=== PATIENT | male | born 1985 | race Caucasian/White ===

== ENCOUNTER 2024-09-09 10:35 | Emergency (ER) | payer SELFPAY ==
[2024-09-09 10:53] VITALS: BP 118/76
[2024-09-09 11:02] VITALS: BMI 24.8
--- NOTE | 2024-09-09 11:28 | ED.GENMED ---
History of Present Illness
General
Chief Complaint: Fall
Source: patient
Time Seen by Provider: 09/09/24 10:59
History of Present Illness
History of Present Illness:
39 year old male presenting to the ER after he accidentally tripped over his own feet while bringing garbage cans back into his house causing him to fall on the right side of his face, sustaining laceration lateral to the right eyebrow and multiple
abrasions to bilateral upper and lower extremities. No reported loss consciousness, headache, visual changes or any other concerns. Unknown last tetanus. No other injuries were sustained.
Past History
Past History
ED Past Medical History: None
ED Past Surgical History: Orthopedic
Social History
Tobacco: Non-smoker
Alcohol: Occasional
Drug: None
Personal:
Living: with family
Employment: Employed
Review of Systems
Review of Systems
All Other Systems: ROS reviewed and negative except as documented in HPI and ROS
Phy Exam
Physical Exam
Physical Exam:
GENERAL: Alert , in no apparent distress
EYE: conjunctiva clear
Head: 1 cm V-shaped laceration just lateral to the right eyebrow, superficial, no active bleeding
NECK: Supple,
ENT: mmm.
LUNGS: no acute respiratory distress
NEUROLOGICAL: Alert and oriented
SKIN: Warm and dry, superficial abrasions scattered over the bilateral upper and lower extremities
MUSCULOSKELETAL: well perfused.
PSYCH: Normal and appropriate interaction.
Scores
Heart Failure Risk
Heart Failure Risk Score: Not Applicable
Heart Score for Chest Pain Patients
STEMI patient?: Not applicable
Withdrawal Assessment of Alcohol
Withdrawal Assessment Completed?: Not applicable
Course
Orders/Labs/Results
Orders:
Orders
09/09/24 11:06
Tetanus/Diphth/Acelpertussis [Adacel] 0.5 ml IM .ONCE ONE
Vital Signs
Initial and Last Documented VS:
Initial Vital Signs
Temp Pulse Resp BP Pulse Ox
98.0 F 68 16 118/76 98
09/09/24 10:53 09/09/24 10:53 09/09/24 10:53 09/09/24 10:53 09/09/24 10:53
Last Documented Vital Signs
Temp Pulse Resp BP Pulse Ox
97.6 F 54 16 109/71 99
09/09/24 11:45 09/09/24 11:45 09/09/24 11:45 09/09/24 11:45 09/09/24 11:45
Procedures
Laceration Closure
Right Lateral Eye brow:
Status of Wound: clean
Size of Wound in cm: 1
Description of Wound Edges: sharp
Preparation: cleaned with saline
Anesthesia: 1% Lidocaine
Revision/Debridement: routine- no revision
Type of Closure: single layer closure
Skin Closure Material: 6-0 nylon
Number of sutures: 5
MDM/Problems Addressed
Differential Diagnosis Includes:
Superficial laceration/abrasion, contusions, I do not have concern for intracranial bleeding
MDM/Problems Addressed:
39-year-old male presenting to the ER for evaluation following an accidental fall resulting in laceration to the right lateral eyebrow and superficial abrasions to the bilateral upper and lower extremities. Will update patient's tetanus vaccine.
Laceration repaired as above without any difficulty. Patient did have a vagal event while suturing. He was laying recumbent at the time with the vagal event occurring and lasting for about 20 seconds. He was provided with juice and remained
laying recumbent for the remainder of laceration repair. Suture removal in 5 to 7 days. Motrin/Tylenol as needed for pain. Otherwise stable for discharge home
*Pulse Oximetry
Patient hypoxic: no
*Critical Care Note
Total Time (30-74mins, 75-104mins- exclusive of procedures): Not Applicable
Data Reviewed
Further Testing Considered But Not Given:
CT head but given mechanism and lack of symptoms decision was made to forego imaging.
ED Attending Note
-
Portions of this chart may have been created with voice recognition software.� Occasional wrong word or��sound alike� substitutions may have occurred due to the inherent limitations of voice recognition software.
Discharge Plan
Departure
Patient Disposition: Home (Routine Discharge)
Date of Disposition: 09/09/24
Time of Disposition: 11:29
Patient with high blood pressure during this ER visit?: No
Discharge Problem:
Accidental fall, Laceration of face, Abrasion
Instructions: Laceration Repair With Stitches (DC)
Activity Restrictions/Additional Instructions:
Suture removal in 5 days
Interventions
Interventions:
*Risk Screen - Suicide Last Done: 09/09/24 10:53
*General Assessment Last Done: 09/09/24 11:02
*Neglect/Abuse Screening Last Done: 09/09/24 10:53
ED- Fall Risk Assessment Last Done: 09/09/24 11:02
*ED COVID-19 Vaccine History Last Done: 09/09/24 11:02
*Nursing Disposition Last Done: 09/09/24 11:45
ED-Musculoskeletal Assessment Last Done: 09/09/24 11:02
ED- Neurological Assessment Last Done: 09/09/24 11:02
ED-Skin Assessment Last Done: 09/09/24 11:02
Discharge Date and Time
Discharge Date/Time: 09/09/24 11:45
Print Language: BULGARIAN
[2024-09-09 11:29] VITALS: BP 109/71
[2024-09-09] MEDS: ADACEL 0.5 ML IM (11:35)
--- NOTE | 2024-09-09 11:44 | EDRN ---
Reviewed discharge instructions with patient. Verbalized understanding. Taken to lobby in wheelchair.
[2024-09-09 11:45] VITALS: BP 109/71
== END 2024-09-09 11:45 | disposition home or self-care (01) ==
LOC: EMR 10:35
PROVIDERS: EMERGENCY PHYSICIAN Student in an Organized Health Care Education/Training Program; FAMILY PHYSICIAN Family Medicine
DX: S01.111A Laceration without foreign body of right eyelid and periocular area, initial encounter (principal); S40.812A Abrasion of left upper arm, initial encounter; S40.811A Abrasion of right upper arm, initial encounter; S80.812A Abrasion, left lower leg, initial encounter; S80.811A Abrasion, right lower leg, initial encounter; W01.0XXA Fall on same level from slipping, tripping and stumbling without subsequent striking against object, initial encounter; Z23 Encounter for immunization
CPT/HCPCS: 12011; 99282; 90471; 90715

== ENCOUNTER 2024-10-11 16:23 | Emergency (ER) | payer SELFPAY ==
[2024-10-11 16:26] VITALS: BP 132/81
[2024-10-11 16:28] VITALS: BMI 22.9
--- NOTE | 2024-10-11 16:31 | ED.GENMED ---
History of Present Illness
General
Chief Complaint: Fainting/Passed Out
Time Seen by Provider: 10/11/24 16:29
History of Present Illness
History of Present Illness:
TIME OF INITIAL ENCOUNTER: 4:30 PM
HPI: Patient comes in after a syncopal event. The patient states that he had gross hematuria while at his 's house. He had some discomfort more so in the penis. He has a history of C5 spinal cord injury but is able to walk. He has never had
any issues like this before. He has never had gross hematuria in the past. He is not on any antiplatelets or anticoagulation. Earlier today, he was working out and he did bump his head but has no headache. He feels dehydrated.
EXAM:
GENERAL: Well appearing in no distress
HEENT: Moist oral mucosa
CARDIOVASCULAR: No murmurs, normal heart rate, regular rhythm, No chest wall tenderness
PULMONARY: No respiratory distress, breath sounds are clear and equal
ABDOMEN: Soft with no peritoneal signs, no tenderness
: Unremarkable external genitalia
NEUROLOGIC: Decreased strength all extremities more so in the lower extremities than the upper extremities, no coordination deficits
PSYCHIATRIC: Appropriate mental status, normal insight and judgement
EXTREMITIES: Nontender, no edema, moves all extremities equally
SKIN: No rash, no lesions
NUMBER AND COMPLEXITY OF PROBLEMS ADDRESSED AT THE ENCOUNTER
� Chronic conditions affecting care: Spinal cord injury
� Acute Exacerbation and/or Progression of Chronic Illness: This is an acute problem
� Differential Diagnosis includes: Dehydration, electrolyte abnormality, dysrhythmia, rhabdomyolysis, ureteral stone
AMOUNT AND/OR COMPLEXITY OF DATA TO BE REVIEWED AND ANALYZED
� I performed an independent evaluation of and my interpretation is:
EKG: Sinus 55, left axis deviation, RSR prime pattern with no old to compare
CT: CT imaging personally reviewed and agree with radiologist interpretation
X-rays:
Laboratory Studies: White count and hemoglobin are normal, normal chemistries, CK normal
Other:
� Review of other/old records: The patient was seen here 1 month ago with an abrasion
� Clinical information was obtained by an independent historian: I spoke to EMS upon patient's arrival
� Prescriptions/Medications Considered but not given:
� Further testing considered but not performed:
RISK OF COMPLICATIONS AND/OR MORBIDITY OR MORTALITY OF PATIENT MANAGEMENT
� Social determinants of health affecting care: Lives at home
� Discussion with other providers:
� Escalation of care including admission/observation vs risk of discharge considered: The patient feels dehydrated, IV fluids have been ordered. He is well-appearing but does have a history of C5 spinal cord injury.
ANY OTHER UPDATES:
6 PM: I reassessed patient�unable to urine
8:30 PM: The patient was able to void after 2 L of fluid. Suspect a component of dehydration. Urinalysis is mostly blood but questionable sign of infection�placed on Keflex. Given the amount of blood, I recommend that he follow urology.
Past History
Past History
ED Past Medical History: None
ED Past Surgical History: Orthopedic
Social History
Tobacco: Non-smoker
Alcohol: Occasional
Drug: None
Personal:
Living: with family
Employment: Employed
Phy Exam
Physical Exam
Physical Exam:
See HPI
Course
Orders/Labs/Results
Orders:
Orders
10/11/24 16:29
CT Abd/pel Without Iv Or Oral Urgent
Comment:
Reason For Exam: gross hematuria and some pain
0.9% Sodium Chloride 1000 ml [Nss] 1,000 ml IV BOLUS
10/11/24 16:31
Electrocardiogram (*1) Urgent
Reason for Study: Chest Pain
EKG- Treatment ONCE
10/11/24 16:34
Complete Blood Count/With Diff Urgent
Comprehensive Metabolic Panel Urgent
Total CK [Creatine Phosphokinase] Urgent
10/11/24 18:06
0.9% Sodium Chloride 1000 ml [Nss] 1,000 ml IV BOLUS
10/11/24 18:53
Urinalysis Reflex To Culture Urgent
Date Specimen was Collected: 10/11/24
Time Specimen was Collected: 18:49
Urine Microscopic Reflex Cult Urgent
Urine Culture Urgent
SAVITA Source: U
Specimen Description:
Date Specimen was Collected: 10/11/24
Time Specimen was Collected: 18:49
10/11/24 20:37
Cephalexin Monohydrate [Keflex] 500 mg PO NOW STA
Abnormal Lab Results
10/11/24 10/11/24
16:34 18:53
RBC 4.59 L 10^6/uL
(4.70-6.10)
MCH 32.0 H pg
(27.0-31.0)
Urine Ketones Trace A
(Negative)
Ur Occult Blood Reflex 4+ A
(Negative)
Urine Bilirubin 1+ A
(Negative)
Leukocyte Esterase Rfl 1+ A
(Negative)
Urine RBC >100 A /HPF
(0-2)
Urine Albumin (Reflex) 3+ A
(Neg - Trace)
10/11/24 16:34
10/11/24 16:34
Vital Signs
Initial and Last Documented VS:
Initial Vital Signs
BP
132/81
10/11/24 16:26
Last Documented Vital Signs
Temp Pulse Resp BP Pulse Ox
36.5 C 65 12 133/80 99
10/11/24 16:36 10/11/24 18:57 10/11/24 18:57 10/11/24 18:56 10/11/24 16:27
*Critical Care Note
Total Time (30-74mins, 75-104mins- exclusive of procedures): Not Applicable
ED Attending Note
-
Portions of this chart may have been created with voice recognition software.� Occasional wrong word or��sound alike� substitutions may have occurred due to the inherent limitations of voice recognition software.
Discharge Plan
Departure
Patient Disposition: Home (Routine Discharge)
Date of Disposition: 10/11/24
Time of Disposition: 20:28
Patient with high blood pressure during this ER visit?: Yes
Discharge Problem:
Acute hemorrhagic cystitis
Instructions: Blood in the urine (hematuria) in adults
Prescriptions:
New
cephalexin 500 mg tablet
500 mg PO TID Qty: 21 0RF
Referrals:
aMuri Durán Jr., MD [Active] - Follow up in 2-3 days
Adry Flynn DO [Family Provider] -
Activity Restrictions/Additional Instructions:
I have given you the contact information for a local urologist to follow-up with. Your white blood cell count and hemoglobin level are normal. Your kidney function is normal. CK level is normal. You did have a lot of blood in the urine with
questionable signs of infection. I have placed you on antibiotics.
Interventions
Interventions:
*Risk Screen - Suicide Last Done: 10/11/24 16:36
*General Assessment Last Done: 10/11/24 16:36
*Neglect/Abuse Screening Last Done: 10/11/24 16:36
*ED COVID-19 Vaccine History Last Done: 10/11/24 16:36
ED- Cardiac Assessment Last Done: 10/11/24 18:27
ED- Neurological Assessment Last Done: 10/11/24 18:28
Discharge Date and Time
Print Language: ANGOLAN
[2024-10-11] MEDS: NSS 1000 IV ×2 (16:35→18:08)
[2024-10-11 16:36] VITALS: BP 132/81
[2024-10-11 16:48] LABS: % Basophils 0.4 % (0-2); % Eosinophils 1.9 % (0-6); % Immature Granulocytes 0.4 % (0-0.5); % Lymphocytes 26.4 % (20.5-51.1); % Monocytes 7.2 % (1.7-9.3); % Neutrophils 63.7 % (42.2-75.2); Absolute Eosinophils 0.1 10^3/uL (0-0.7); Absolute Lymphocytes 1.8 10^3/uL (1.2-3.4); Absolute Monocytes 0.5 10^3/uL (0.1-0.6); Absolute Neutrophils 4.3 10^3/uL (1.4-6.5); Hematocrit 42.9 % (39.0-52.0); Hemoglobin 14.7 g/dL (13.0-18.0); Mean Corp Hgb Conc. 34.3 g/dL (33.0-37.0); Mean Corpuscular Volume 93.5 fL (80.0-94.0); Mean Platelet Volume 8.8 fL (7.4-10.4); Nucleated Red Blood Cells % 0 % (-); Platelet Count 239 10^3/uL (130-400); Red Blood Cell Count 4.59 10^6/uL (4.70-6.10); Red Cell Dist. Width 11.6 % (11.5-14.5); White Blood Cell Count 6.7 10^3/uL (4.8-10.8)
[2024-10-11 17:10] LABS: ALT (SGPT) 20 U/L (0-50); AST (SGOT) 24 U/L (17-59); Albumin 4.4 g/dl (3.5-5.0); Alkaline Phosphatase 100 U/L (38-126); Blood Urea Nitrogen 17 mg/dl (9-20); Calcium 9.1 mg/dl (8.4-10.2); Carbon Dioxide 28 mmol/L (22-30); Chloride 104 mmol/L (98-107); Creatine Phosphokinase 122 U/L (55-170); Estimated Creatinine Clearance > 125 ml/min; Glucose 91 mg/dl (70-99); Potassium 4.1 mmol/L (3.5-5.1); Sodium 138 mmol/L (135-145); Total Protein 6.8 g/dl (6.3-8.2); eGFR > 60.00
[2024-10-11 18:56] VITALS: BP 133/80
[2024-10-11 18:57] LABS: Urine Albumin 3+ (Neg - Trace); Urine Bilirubin 1+ (Negative); Urine Character Very Cloudy (Clear); Urine Color Brown; Urine Glucose Negative (Negative); Urine Ketone Trace (Negative); Urine Leukocyte 1+ (Negative); Urine Nitrite Negative (Negative); Urine Occult Blood 4+ (Negative); Urine Specific Gravity 1.015 (<1.030); Urine Urobilinogen Negative (Neg - 1+)
[2024-10-11 19:04] LABS: Urine Red Blood Cell >100 /HPF (0-2)
[2024-10-11 21:59] VITALS: BP 138/75
[2024-10-11] MEDS: KEFLEX 500 MG PO (22:00)
== END 2024-10-11 22:02 | disposition home or self-care (01) ==
LOC: EMR 16:23
PROVIDERS: EMERGENCY PHYSICIAN Emergency Medicine; FAMILY PHYSICIAN Family Medicine
DX: R55 Syncope and collapse (principal); N30.01 Acute cystitis with hematuria; S09.90XA Unspecified injury of head, initial encounter; X58.XXXA Exposure to other specified factors, initial encounter; R03.0 Elevated blood-pressure reading, without diagnosis of hypertension; Z87.828 Personal history of other (healed) physical injury and trauma
CPT/HCPCS: 99284; 96360; 96361; 74176; 80053; 81003; 81015; 82550; 85025; 87086; 93005